=== PATIENT | male | born 1985 | race Hispanic/Latino ===

== ENCOUNTER 2020-04-11 04:31 | Emergency (ER) | payer SELFPAY ==
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
== END 2020-04-11 05:59 | disposition home or self-care (01) ==
LOC: ERS 04:31
DX: S06.0X0A Concussion without loss of consciousness, initial encounter (principal); F32.9 Major depressive disorder, single episode, unspecified; F41.9 Anxiety disorder, unspecified; X99.8XXA Assault by other sharp object, initial encounter
CPT/HCPCS: 70450; 72125